=== PATIENT | female | born 1945 | race Caucasian/White ===

== ENCOUNTER 2017-05-14 15:53 | Outpatient (CLI) | payer MEDICARE, OTHER ==
[~2017-05-14] VITALS: Ht 154.9 cm; Wt 63.6 kg
--- NOTE | ~2017-05-14 | OP ---
PATIENT NAME: SUSIE ENCINAS MEDICAL RECORD: [id number] :47 LOCATION:D.CAT ADMISSION DATE: SURGEON: KJ JUAREZ MD DATE OF OPERATION: 05/14/2017 PROCEDURES: 1. Laser atherectomy, RCA and PLV. 2. PTCA stent, RCA and PLV. 3. Left heart catheterization. 4. Selective coronary angiography. 5. Left ventriculogram. INDICATION: Angina and coronary artery disease. PROCEDURE IN DETAIL: After informed consent was obtained and after detailed explanation of risks, benefits as well as alternative therapies, the patient elected to proceed with angiogram and angioplasty. The right radial area was prepped and draped in normal sterile fashion. The right radial artery was cannulated via modified Seldinger technique with placement of 6-Maldivian sheath. All catheters exchanged through this sheath. FINDINGS: Left ventriculogram was performed in standard 30-degree HEBERT view, reveals good cardiac wall motion throughout all segments. Overall ejection fraction estimated 60%. SELECTIVE CORONARY ANGIOGRAPHY: 1. Left main showed no significant angiographic disease. 2. Left anterior descending has moderate irregularities, but no flow-limiting stenosis. 3. Left circumflex has moderate irregularities, but no flow-limiting stenosis. 4. The right coronary has multiple previously placed stents from approximately 2007 that have up to 90% to 95% in-stent restenosis in the RCA and the PLV. PTCA STENT, LASER ATHERECTOMY OF THE RCA AND PLV: Laser catheter used was 1.4 mm catheter throughout the RCA and PLV. Multiple passes were made. Stenting was undertaken with a 2.5 x 38, 3.0 x 38, 3.0 x 34, all Nottingham stents. Result was 0% residual stenosis. OVERALL IMPRESSION: Successful percutaneous transluminal coronary angioplasty stent of the right coronary artery going from multiple areas of 95% initial stenosis to 0% residual. TRANSINT:[id number] Voice Confirmation ID: [id number] DOCUMENT ID: [id number] KJ JUAREZ MD CC: [id number] DICTATION DATE: 05/14/17 1153 IRON HANDLER: 05/14/17 1207 [facility] [address] [place] [address]
--- NOTE | ~2017-05-14 | HEMODYNAMI ---
PATIENT:SUSIE ENCINAS MEDICAL RECORD: [id number] : 47 LOCATION:DNGUYEN ADMISSION DATE: 05/14/17 Generatedon:05/14/201711:45 Patient name: SUSIE ENCINAS Patient #: [id number] SSN: : Date of study: 05/14/2017 Page: Of Hemodynamic Procedure Report Patient Data Patient Demographics Procedure consent was obtained First Name: SUSIE Gender: Female Last Name: HUANG : 1945 Patient #: [id number] Age: 71 year(s) Race: Unknown Additional ID: [id number] Contact details [address]: [address] [place] [address] State: [place] City: [place] Zip code: [address] Past Medical History Allergies Allergen Reaction Date Comments Reported Other allergy 05/14/2017 Iodine, shellfish, codeine, sulfabenzamide Admission Admission Data Admission Date: 05/14/2017 Admission Time: 10:30 Procedure Procedure Types Cath Procedure Diagnostic Procedure LHC LHC w/Coronaries PCI Procedure Coronary Atherectomy Atherectomy w/Stent Coronary Initial Atherectomy w/Stent Coronary Additional Miscellaneous Procedures Moderate Sedation up to 45 minutes Procedure Description Procedure Date Procedure Date: 05/14/2017 Procedure Start Time: 10:40 Procedure End Time: 11:39 Procedure Staff Name Function Royce Kuhn MD Performing Physician Erika Toro RT Monitor Jolie Devlin RT Scrub Ebonie Lopez RN Nurse Procedure Data Cath Procedure Fluoroscopy Diagnostic fluoroscopy Total fluoroscopy Time: time: 17.5 min 17.5 min Diagnostic fluoroscopy Total fluoroscopy dose: dose: 1245 mGy 1245 mGy Contrast Material Contrast Material Type Amount (ml) Isovue 300 147 Entry Location Entry Primary Successful Side Size Upsize Upsize Entry Closure Succes sful Closure Location (Fr) 1 (Fr) 2 (Fr) Remarks Device Remarks Femoral Right 5 Fr 6 Fr Exoseal artery Short Estimated blood loss: 5 ml Diagnostic catheters Device Type Used For End Catheter Placement MULTIPACK Pigtail 5 Fr LV Angiography catheter MULTIPACK JL 4.0 5Fr Left Coronary catheter Angiography MULTIPACK 3DRC 5Fr Right Coronary catheter Angiography Procedure Complications No complications Procedure Medications Medication Administration Route Dosage 0.9% NaCl I.V. 100 ml/hr Oxygen NC 2 l/min Lidocaine 2% added to field 20 Heparin Flush Bag added to field 2 bags (1000units/500ml NS) Fentanyl I.V. 50 mcg Versed I.V. 1 mg Versed I.V. 1 mg Fentanyl I.V. 50 mcg Fentanyl I.V. 50 mcg Versed I.V. 1 mg Versed I.V. 1 mg Fentanyl I.V. 50 mcg Fentanyl I.V. 50 mcg Versed I.V. 1 mg Fentanyl I.V. 50 mcg Heparin Bolus I.V. 5000 units Versed I.V. 1 mg Fentanyl I.V. 50 mcg Fentanyl I.V. 50 mcg Versed I.V. 1 mg Heparin Bolus I.V. 5000 units Versed I.V. 1 mg Fentanyl I.V. 100 mcg Hemodynamics Rest Heart Rate: 84 (bpm) Pressure Samples Time Site Value (mmHg) Purpose Heart Use Rate(bpm) 10:42 LV 87/62,34 Snapshot 70 Snapshots Pre Cath Intra NCS Post Cath Vital Signs Time Heart Resp SPO2 etCO2 NIBP (mmHg) Rhythm Pain Sedation Rate (ipm) (%) (mmHg) Status Level (bpm) 10:15:00 82 17 99 25.6 173/85(136) NSR 0 (11) 10(A) , No pain 10:19:24 85 16 98 26.3 171/82(125) NSR 0 (11) 10(A) , No pain 10:23:44 74 26 96 33.1 157/76(115) NSR 0 (11) 10(A) , No pain 10:28:02 129 14 95 18.8 165/78(121) NSR 0 (11) 10(A) , No pain 10:32:24 68 16 96 31.6 152/76(119) NSR 0 (11) 10(A) , No pain 10:36:42 69 16 97 31.6 161/74(124) NSR 0 (11) 9(A) , No pain 10:40:54 74 21 98 35.4 161/79(121) NSR 0 (11) 10(A) , No pain 10:45:14 78 16 96 27.9 133/79(122) NSR 0 (11) 10(A) , No pain 10:49:28 74 16 96 36.2 152/66(114) NSR 0 (11) 10(A) , No pain 10:53:46 73 19 97 33.1 149/70(117) NSR 0 (11) 9(A) , No pain 10:58:09 71 15 95 21 126/66(102) NSR 0 (11) 9(A) , No pain 11:02:21 69 16 97 21.8 132/67(100) NSR 0 (11) 10(A) , No pain 11:07:26 74 14 96 0 129/67(107) NSR 0 (11) 9(A) , No pain 11:11:32 80 17 96 29.3 149/90(118) NSR 0 (11) 9(A) , No pain 11:15:41 87 16 97 30.8 164/101(145) NSR 0 (11) 9(A) , No pain 11:19:57 88 16 97 24.8 182/105(139) NSR 0 (11) 10(A) , No pain 11:24:18 85 16 97 0 185/96(143) NSR 0 (11) 9(A) , No pain 11:28:38 90 18 96 23.3 184/97(140) NSR 0 (11) 9(A) , No pain 11:33:00 82 16 96 10.5 152/81(128) NSR 0 (11) 10(A) , No pain 11:37:59 85 5 97 30.8 Measuring NSR 0 (11) 10(A) , No pain 11:38:09 86 6 97 35.3 160/79(129) NSR 0 (11) 10(A) , No pain Medications Time Medication Route Dose Verified Delivered Reason Notes Effectiveness by by 10:14:19 0.9% NaCl I.V. 100 Royce Ebonie used for ml/hr Hattie Lopez RN procedure 10:14:27 Oxygen NC 2 Royce Loomis Per physician l/min Hattie Lopez RN 10:14:36 Lidocaine 2% added 20ml Royce Crane for local to vial Hattie Kuhn MD anesthetic field 10:14:41 Heparin Flush added 2 Royce Crane used for Bag to bags Hattie Kuhn MD procedure (1000units/500ml field NS) 10:28:44 Fentanyl I.V. 50 Royce Ebonie for sedation mcg Hattie Lopez RN 10:28:53 Versed I.V. 1 mg Royce Ebonie for sedation Hattie Lopez RN 10:30:26 Versed I.V. 1 mg Royce Ebonie for sedation Hattie Lopez RN 10:30:33 Fentanyl I.V. 50 Royce Ebonie for sedation mcg Hattie Lopez RN 10:32:03 Fentanyl I.V. 50 Royce Ebonie for sedation mcg Hattie Lopez RN 10:32:09 Versed I.V. 1 mg Royce Ebonie for sedation Hattie Lopez RN 10:33:55 Versed I.V. 1 mg Royce Ebonie for sedation Hattie Lopez RN 10:34:05 Fentanyl I.V. 50 Royce Ebonie for sedation mcg Hattie Lopez RN 10:42:01 Fentanyl I.V. 50 Royce Ebonie for sedation mcg Hattie Lopez RN 10:42:06 Versed I.V. 1 mg Royce Ebonie for sedation Hattie Lopez RN 10:43:47 Heparin Bolus I.V. 5000 Royce Ebonie for verifi ed units Hattie Lopez RN anticoagulation by 10:43:47 Fentanyl I.V. 50 Royce Ebonie for sedation mcg Hattie Lopez RN 10:53:19 Versed I.V. 1 mg Royce Ebonie for sedation Hattie Lopez RN 10:55:21 Fentanyl I.V. 50 Royce Eboine for sedation mcg Hattie Lopez RN 11:03:42 Fentanyl I.V. 50 Royce Ebonie for sedation mcg Hattie Lopez RN 11:03:48 Versed I.V. 1 mg Royce Ebonie for sedation Hattie Lopez RN 11:06:12 Heparin Bolus I.V. 5000 Royce Ebonie for verifi ed units Hattie Lopez RN anticoagulation by 11:14:50 Versed I.V. 1 mg Royce Ebonie for sedation Hattie Lopez RN 11:27:13 Fentanyl I.V. 100 Royce Loomis chest pain for mcg Hattie Lopez RN chest pain Procedure Log Time Note 10:00:21 Erika Toro RT(R) sent for patient. Start room use. 10:09:22 Time tracking: Regular hours 10:09:26 Plan of Care:Hemodynamics will remain stable., Cardiac rhythm will remain stable., Comfort level will be maintained., Respiratory function will remain adequate., Patient/ family verbilizes understanding of procedure., Procedure tolerated without complication., Recovers from procedure without complications.. 10:09:37 Patient received from Pre/Post Procedure Room to CCL 2 Alert and oriented. Tansferred to table in Supine position. 10::38 Warm blankets applied, and sudha hugger turned on for patient comfort. 10::38 Correct patient and procedure confirmed by team. 10::40 Signed procedure consent form obtained from patient. 10:09:40 ECG and BP/O2 sat monitors applied to patient. 10:13:47 Vital chart was started 10:14:19 0.9% NaCl 100 ml/hr I.V. was administered by Ebonie Lopez RN; used for procedure; 10:14:27 Oxygen 2 l/min NC was administered by Ebonie Lopez RN; Per physician; 10:14:36 Lidocaine 2% 20ml vial added to field was administered by Royce Kuhn MD; for local anesthetic; 10:14:41 Heparin Flush Bag (1000units/500ml NS) 2 bags added to field was administered by Royce Kuhn MD; used for procedure; 10:16:43 Baseline sample Acquired. 10:16:48 Rhythm: sinus rhythm 10:16:49 Full Disclosure recording started 10:17:02 H&P Date Dictated: 05/08/2017 Within 30 days and on chart., H&P Addendum completed by physician on day of procedure. (MUST COMPLETE FOR ALL OUTPATIENTS). 10:17:03 Pre-procedure instructions explained to patient. 10:17:03 Pre-op teaching completed and patient verbalized understanding. 10:17:05 Family in waiting room. 10:17:06 Patient NPO since Midnight. 10:17:45 Patient allergic to Other allergyIodine, shellfish, codeine, sulfabenzamide 10:17:55 Is the patient allergic to Iodine/contrast media? Yes. 10:17:56 Was the patient premedicated? Yes 10:17:57 Is patient on blood thinner?Yes 10:18:02 ACC The patient was administered the following blood thiners within the last 24 hours: ACCPlavix 10:18:32 Patient diabetic? No. 10:18:34 Previous problem with sedation/anesthesia? No ? 10:19:05 Snore? Yes 10:19:07 Sleep apnea? No 10:19:16 Deviated septum? No 10:19:16 Opens mouth fully? Yes 10:19:17 Sticks out tongue? Yes 10:19:30 Airway obstruction? Yes asthma 10:19:34 Dentures? No ? 10:19:38 Pre procedure: right dorsailis pedis pulse 1+ Palpable, but thready & weak; easily obliterated 10:19:39 Pre procedure: left dorsailis pedis pulse 1+ Palpable, but thready & weak; easily obliterated 10:19:41 Patient pain scale 0/10 ?. 10:19:47 IV patent on arrival in left forearm with 0.9% NaCl at [facility]. 10:19:53 Lab results completed and on chart. 10:19:57 Right groin area was prepped with chlora-prep and draped in sterile fashion 10:19:58 Alarms reviewed by R. N. 10:19:58 Sharps counted by scrub and verified by R.N. 10:28:13 Physician arrived 10:28:14 --------ALL STOP TIME OUT------ 10:28:14 Final Timeout: patient, procedure, and site verified with staff and physician. All members of the team are in agreement. 10:28:17 Right groin site verified by team. 10:28:20 Physical assessment completed. ASA score P 2 - A patient with mild systemic disease as per Royce Kuhn MD. 10:28:23 Sedation plan: IV Moderate Sedation Medication:Versed, Fentanyl 10:28:29 Use device set Femoral Dx 10:28:30 ACIST Syringe (10788) opened to sterile field. 10:28:31 Bag Decanter (2002S) opened to sterile field. 10:28:31 Medline Cath Pack ([id number]) opened to sterile field. 10:28:32 SHEATH 5FR [place] (GTL918) opened to sterile field. 10:28:32 DIAGNOSTIC WIRE .035 260cm J wire (169282) opened to sterile field. 10::34 ACIST Hand Control (32283) opened to sterile field. 10::34 ACIST Manifold (23404) opened to sterile field. 10::35 DIAGNOSTIC Multipack 5Fr catheter set ([id number]) opened to sterile field. 10::35 Tegaderm 4 x 4 (1626W) opened to sterile field. 10::44 Fentanyl 50 mcg I.V. was administered by Ebonie Lopez RN; for sedation; 10:28:53 Versed 1 mg I.V. was administered by Ebonie Lopez RN; for sedation; 10:30:26 Versed 1 mg I.V. was administered by Ebonie Lopez RN; for sedation; 10:30:33 Fentanyl 50 mcg I.V. was administered by Ebonie Lopez RN; for sedation; 10:32:03 Fentanyl 50 mcg I.V. was administered by Ebonie Lopez RN; for sedation; 10:32:09 Versed 1 mg I.V. was administered by Ebonie Lopez RN; for sedation; 10:32:16 Zero performed for pressure channel P1 10:33:55 Versed 1 mg I.V. was administered by Ebonie Lopez RN; for sedation; 10:34:05 Fentanyl 50 mcg I.V. was administered by Ebonie Lopez RN; for sedation; 10:39:59 Procedure started. 10:40:03 Local anesthetic to right femoral artery with Lidocaine 2% by Royce Kuhn MD.INITIAL ACCESS ONLY 10:41:07 A 5 Fr sheath was inserted into the Right Femoral artery 10:41:43 A MULTIPACK Pigtail 5 Fr catheter was advanced over the wire and used for LV Angiography. 10:42:01 Fentanyl 50 mcg I.V. was administered by Ebonie Lopez RN; for sedation; 10:42:06 Versed 1 mg I.V. was administered by Ebonie Lopez RN; for sedation; 10:42:22 LV hemodynamics recorded. 10:42:24 LV gram done using HEBERT 10:: Injector settings: Ml/sec: 5, Volume: 15, 10:42:32 EF : 60 % 10:42:33 Catheter removed. 10:42:40 A MULTIPACK JL 4.0 5Fr catheter was advanced over the wire and used for Left Coronary Angiography. 10:43:12 LCA angiography performed. 10:43:28 Injector settings: Ml/sec: 3, Volume: 6, 10:43:47 Heparin Bolus 5000 units I.V. was administered by Eobnie Lopez RN; for anticoagulation; verified by 10:43:47 Fentanyl 50 mcg I.V. was administered by Ebonie Lopez RN; for sedation; 10:44:17 Catheter removed. 10:44:24 A MULTIPACK 3DRC 5Fr catheter was advanced over the wire and used for Right Coronary Angiography. 10:44:59 RCA angiography performed. 10:45:02 Injector settings: Ml/sec: 3, Volume: 6, 10:45:16 Catheter removed. 10:45:17 Proceeding to intervention. 10:45:55 INFLATOR Merit BasixCompak (PZ9263) opened to sterile field. 10:45:56 SHEATH 6FR [place] (AZG520) opened to sterile field. 10:46:09 Sheath upsized to a 6 Fr Short. 10:47:07 CHOICE PT Extra Support 182cm wire ([id number]) opened to sterile field. 10:49:04 GUIDE 6FR AR 2.0 catheter (SN2SU06) opened to sterile field. 10:49:11 6 Fr ar 2 guide catheter was inserted over the wire 10:52:17 Lazer in room and being prepared 10:53:19 Versed 1 mg I.V. was administered by Ebonie Lopez RN; for sedation; 10:55:21 Fentanyl 50 mcg I.V. was administered by Ebonie Lopez RN; for sedation; 11:03:42 Fentanyl 50 mcg I.V. was administered by Ebonie Lopez RN; for sedation; 11:03:48 Versed 1 mg I.V. was administered by Ebonie Lopez RN; for sedation; 11:04:52 choice pt wire advanced. 11:04:54 Wire advanced across lesion. 11:05:04 Wire removed. 11:06:12 Heparin Bolus 5000 units I.V. was administered by Ebonie Lopez RN; for anticoagulation; verified by 11:07:14 CHOICE PT Extra Support 182cm wire ([id number]) opened to sterile field. 11:07:22 choice pt wire advanced. 11:07:24 Wire advanced across lesion. 11:08:04 Laser pass to mRCA with Fluence of 40 and Rate of 40. 11:12:29 Laser catheter removed. 11:13:49 Inflation number: 1 A EUPHORA 3.0 x 20 Balloon ([id number]) was prepped and advanced across the Dist RCA, then inflated to 9 AMARILIS for 0:10 (min:sec). 11:13:55 Inflation number: 2 The EUPHORA 3.0 x 20 Balloon ([id number]) was reinflated across the Dist RCA, to 9 AMARILIS for 0:10 (min:sec). 11:14:03 Inflation number: 3 The EUPHORA 3.0 x 20 Balloon ([id number]) was reinflated across the Dist RCA, to 13 AMARILIS for 0:10 (min:sec). 11:14:15 Inflation number: 1 The EUPHORA 3.0 x 20 Balloon ([id number]) was reinflated across the Mid RCA, to 13 AMARILIS for 0:10 (min:sec). 11:14:24 Inflation number: 2 The EUPHORA 3.0 x 20 Balloon ([id number]) was reinflated across the Mid RCA, to 13 AMARILIS for 0:10 (min:sec). 11:14:34 Inflation number: 3 The EUPHORA 3.0 x 20 Balloon ([id number]) was reinflated across the Mid RCA, to 17 AMARILIS for 0:10 (min:sec). 11:14:50 Versed 1 mg I.V. was administered by Ebonie Lopez RN; for sedation; 11:14:53 Balloon removed over the wire. 11:15:30 Inflation number: 4 The EUPHORA 3.0 x 20 Balloon ([id number]) was reinflated across the Dist RCA, to 9 AMARILIS for 0:10 (min:sec). 11:15:47 Inflation number: 5 The EUPHORA 3.0 x 20 Balloon ([id number]) was reinflated across the Dist RCA, to 13 AMARILIS for 0:10 (min:sec). 11:16:33 Balloon removed over the wire. 11:16:38 Lazer advanced for another pass to RCA 11:20:08 Laser pass to mCirc with Fluence of 60 and Rate of 40. 11:23:58 Laser catheter removed. 11:25:12 Inflation Number: 1 A ALEYDA RX 2.5 x 38 stent ([id number]) was prepped and advanced across the R PAV. The stent was deployed at 21 AMARILIS for 0:10 (min:sec). 11:26:07 Stent catheter was removed intact over wire. 11:26:53 Inflation Number: 4 A ALEYDA RX 3.0 x 38 stent ([id number]) was prepped and advanced across the Mid RCA. The stent was deployed at 15 AMARILIS for 0:10 (min:sec). 11:27:13 Fentanyl 100 mcg I.V. was administered by Ebonie Lopez RN; chest pain; for chest pain 11:27:15 Inflation number: 6 The stent balloon was then re-inflated across the Dist RCA to 13 AMARILIS for 0:10 (min:sec). 11:27:41 Stent catheter was removed intact over wire. 11:29:17 Inflation Number: 1 A ALEYDA RX 3.0 x 34 stent ([id number]) was prepped and advanced across the Prox RCA. The stent was deployed at 13 AMARILIS for 0:10 (min:sec). 11:29:25 Stent catheter was removed intact over wire. 11:31:02 Laser total pulses delivered: 5180 11:31:08 Laser total treatment time: 2 minutes 9 seconds 11:32:25 Inflation number: 5 A NC EUPHORA 3.5 x 12 balloon ([id number]) was prepped and advanced across the Mid RCA, then inflated to 21 AMARILIS for 0:10 (min:sec). 11:32:50 Inflation number: 2 The NC EUPHORA 3.5 x 12 balloon ([id number]) was reinflated across the Prox RCA, to 21 AMARILIS for 0:10 (min:sec). 11:33:00 Inflation number: 3 The NC EUPHORA 3.5 x 12 balloon ([id number]) was reinflated across the Prox RCA, to 21 AMARILIS for 0:10 (min:sec). 11:33:21 Inflation number: 6 The NC EUPHORA 3.5 x 12 balloon ([id number]) was reinflated across the Mid RCA, to 21 AMARILIS for 0:10 (min:sec). 11:33:35 Inflation number: 7 The NC EUPHORA 3.5 x 12 balloon ([id number]) was reinflated across the Mid RCA, to 23 AMARILIS for 0:10 (min:sec). 11:33:53 Balloon removed over the wire. 11:33:54 Wire removed. 11:33:55 Guide catheter removed. 11:35:17 EXOSEAL 6Fr (EX600) opened to sterile field. 11:35:47 Sheath removed intact; hemostasis achieved with Exoseal to the Right Femoral artery. 11:35:49 Procedure ended.(Physican Out) 11:36:50 Fluoroscopy time 17.50 minutes. 11:36:55 Fluoroscopy dose: 1245 mGy 11:36:55 Flurop Dose total: 1245 11:36:58 Contrast amount:Isovue 300 147ml. 11:37:00 Sharps counted by scrub and verified by R.N. 11:37:02 Insertion/operative site no bleeding no hematoma. 11:37:05 Post-op/insertion site Right Femoral artery dressed using a 4 x 4 and Tegaderm. 11:37:08 Post right femoral artery:stable 11:37:09 Post Procedure Pulses reassessed and unchanged 11:37:12 Post procedure rhythm: unchanged. 11:37:15 Estimated blood loss: 5 ml 11:37:47 Post procedure instruction explained to patient.Patient verbalizes understanding. 11:37:47 Patient needs reinforcement of post procedure teaching. 11:39:15 Procedure type changed to Cath procedure, Diagnostic procedure, LHC, LHC w/Coronaries, PCI procedure, Coronary Atherectomy, Atherectomy w/Stent Coronary Initial, Atherectomy w/Stent Coronary Additional, Miscellaneous Procedures, Moderate Sedation up to 45 minutes 11:39:16 Procedure and supply charges have been captured, reviewed, submitted and are correct. 11:39:22 Procedure Complication : No complications 11:39:24 Vital chart was stopped 11:39:24 See physician's report for complete and final results. 11:39:26 Report given to Pre/Post Procedure Room. 11:39:29 Patient transfered to Pre/Post Procedure Room with Stretcher. 11:39:31 Procedure ended. 11:39:31 Full Disclosure recording stopped 11:39:39 ACC-PCI Only Patient was given prescriptions, or instructed by Royce Kuhn MD to start/continue the following medications upon discharge: Plavix 11:39:40 End room use (Document Last) Intervention Summary Intervention Notes Time ActionType Lesion and Equipment Used Action# Pressure Duration Attributes 11:13:49 Inflate Dist RCA EUPHORA 3.0 x 1 9 00:10 balloon 20 Balloon ([id number]) 11:13:55 Reinflate Dist RCA EUPHORA 3.0 x 2 9 00:10 balloon 20 Balloon ([id number]) 11:14:03 Reinflate Dist RCA EUPHORA 3.0 x 3 13 00:10 balloon 20 Balloon ([id number]) 11:14:15 Reinflate Mid RCA EUPHORA 3.0 x 1 13 00:10 balloon 20 Balloon ([id number]) 11:14:24 Reinflate Mid RCA EUPHORA 3.0 x 2 13 00:10 balloon 20 Balloon ([id number]) 11:14:34 Reinflate Mid RCA EUPHORA 3.0 x 3 17 00:10 balloon 20 Balloon ([id number]) 11:15:30 Reinflate Dist RCA EUPHORA 3.0 x 4 9 00:10 balloon 20 Balloon ([id number]) 11:15:47 Reinflate Dist RCA EUPHORA 3.0 x 5 13 00:10 balloon 20 Balloon ([id number]) 11:25:12 Place stent R PAV ALEYDA RX 2.5 x 1 21 00:10 38 stent ([id number]) 11:26:53 Place stent Mid RCA ALEYDA RX 3.0 x 4 15 00:10 38 stent ([id number]) 11:27:15 Reinflate Dist RCA ALEYDA RX 3.0 x 6 13 00:10 stent 38 stent balloon ([id number]) 11:29:17 Place stent Prox RCA ALEYDA RX 3.0 x 1 13 00:10 34 stent ([id number]) 11:32:25 Inflate Mid RCA NC EUPHORA 3.5 5 21 00:10 balloon x 12 balloon ([id number]) 11:32:50 Reinflate Prox RCA NC EUPHORA 3.5 2 21 00:10 balloon x 12 balloon ([id number]) 11:33:00 Reinflate Prox RCA NC EUPHORA 3.5 3 21 00:10 balloon x 12 balloon ([id number]) 11:33:21 Reinflate Mid RCA NC EUPHORA 3.5 6 21 00:10 balloon x 12 balloon ([id number]) 11:33:35 Reinflate Mid RCA NC EUPHORA 3.5 7 23 00:10 balloon x 12 balloon ([id number]) Device Usage Item Name Manufacture Quantity Catalog Number Hospital Part Current M inimal Lot# / Charge Number Stock Stock Serial# Code ACIST Syringe Acist 1 36984 313457 124340 675224 2 0 (30868) Medical Systems Inc Bag Decanter Microtek 1 [id number] 66603 498659 5 () Medical Inc. Medline Cath Cardinal 1 [id number] 676712 36804 700926 5 Room Choice ([id number]) SHEATH 5FR Terumo 1 [id number] 042211 656013 620930 4 0 [place] ([id number]) DIAGNOSTIC St Rudy 1 663641 272769 630968 774781 3 0 WIRE .035 260cm J wire (597876) ACIST Hand Acist 1 06320 468377 601266 965117 5 Control Medical (37273) Systems Inc ACIST Manifold Acist 1 38567 187442 029034 716617 5 (21340) Medical Systems Inc DIAGNOSTIC Cardinal 1 RO3166 216721 36645 479811 3 0 Multipack 5Fr Health catheter set (TR2596) Tegaderm 4 x 4 3M 1 1626W 739880 780143 633129 5 (1626W) MULTIPACK Cardinal 1 428126 5 Pigtail 5 Fr Health catheter MULTIPACK JL Cardinal 1 [id number] 5 4.0 5Fr Health catheter MULTIPACK 3DRC Cardinal 1 241651 5 5Fr catheter Health INFLATOR Merit Merit 1 NR7627 844581 801673 340314 1 5 Azure Power (GL6487) SHEATH 6FR Terumo 1 [id number] 177718 774560 514917 4 0 [place] ([id number]) CHOICE PT [place] 2 [id number] 860269 333239 973895 5 Extra Support Scientific 182cm wire ([id number]) GUIDE 6FR AR Medtronic 1 [id number] 545401 07891 298190 1 2.0 catheter (HK4IS26) EUPHORA 3.0 x Medtronic 1 [id number] 540536 042220 980909 5 [id number] 20 Balloon ([id number]) ALEYDA RX 2.5 x Medtronic 1 [id number] 008388 1977768 707182 5 [id number] 38 stent ([id number]) ALEYDA RX 3.0 x Medtronic 1 [id number] 277884 4781896 682722 5 [id number] 38 stent ([id number]) ALEYDA RX 3.0 x Medtronic 1 [id number] 081570 5158788 667225 5 [id number] 34 stent ([id number]) NC EUPHORA 3.5 Medtronic 1 [id number] 921899 135662 106435 1 [id number] x 12 balloon ([id number]) EXOSEAL 6Fr Cardinal 1 EX600 733446 285422 355881 1 0 (EX600) Health Signature Audit [place] Stage Time Signature Unsigned Intra-Procedure 05/14/2017 Erika INFANTE(Matt) 11:44:55 AM Signatures Monitor : Erika Toro RT Signature : Date : Time : [place] [address] [place] [address]
[2017-05-14 09:10] VITALS: BP 126/78; Ht 154.9 cm; Wt 63.6 kg
[2017-05-14 09:28] LABS: BASOPHILS 0.1 % (0-2); EOSINOPHILS 0 % (0-7); HEMOGLOBIN 14.3 g/dL (12-16); IMMATURE GRANULOCYTES 0.1 % (0-5); LYMPHOCYTES 12.8 % (15-50); MCH 31.1 pg (26.0-34.0); MCV 91.3 fL (80.0-100.0); MEAN PLATELET VOLUME 9.2 fL (7.4-10.4); MONOCYTES 1.3 % (2-11); NEUTROPHILS 85.7 % (40-80); PLATELET COUNT 342 10x3/uL (130-400); RDW 12.9 % (11.5-14.5); WBC 9.2 10x3/uL (4.8-10.8)
[2017-05-14 09:49] LABS: CALC OSMOLALITY 276 mosm/kg (275-300); CALCIUM 10.3 mg/dL (8.5-10.1); CARBON DIOXIDE 28.5 mmol/L (21.0-32.0); CHLORIDE - SERUM 99 mmol/L (98-107); CREATININE - SERUM 0.7 mg/dL (0.6-1.3); GLUCOSE 131 mg/dL (74-106); POTASSIUM - SERUM 3.2 mmol/L (3.5-5.1); SODIUM 138 mmol/L (136-145); UREA NITROGEN 11 mg/dL (7-18); eGFR NON AFRICAN AMERICAN 88 mL/min (90-120)
[~2017-05-14 15:53] MED LIST: BAYER CHEWABLE81 MG PO; FLOVENT DI50 MCG/DIS INH; LISINOPRIL-HCTZ1 T11 PO; NIFEDIPINE ER60 MG PO; OMEGA 3 FISH OI1 CAP PO; PLAVIX75 MG PO; PRAVACHOL40 MG PO; PREDNISONE20 MG PO; PROAIR HFA8.5 GM INH; SINGULAIR5 MG PO; TENORMIN100 MG PO; TYLENOL PM1 TAB PO; XANAX0.25 MG PO; ZYRTEC10 MG PO
== END 2017-05-14 15:55 | disposition home or self-care (01) ==
LOC: D.CATH 15:53
PROVIDERS: Internal Medicine Interventional Cardiology
DX: I25.119 Atherosclerotic heart disease of native coronary artery with unspecified angina pectoris (principal); T82.855A Stenosis of coronary artery stent, initial encounter; Z01.812 Encounter for preprocedural laboratory examination
CPT/HCPCS: 93458; C9602; C9603

== ENCOUNTER 2017-09-10 08:27 | Outpatient (CLI) | payer MEDICARE, OTHER ==
[~2017-09-10] VITALS: Ht 154.9 cm; Wt 61.4 kg
--- NOTE | ~2017-09-10 | HEMODYNAMI ---
PATIENT:HEATHER ENCINAS MEDICAL RECORD: [id number] : 47 LOCATION:[facility] ADMISSION DATE: 09/10/17 Generatedon:09/10/201710:46 Patient name: HEATHER ENCINAS Patient #: [id number] SSN: : 1945 Date of study: 09/10/2017 Page: Of Hemodynamic Procedure Report Patient Data Patient Demographics Procedure consent was obtained First Name: HEATHER Gender: Female Last Name: HUANG : 1945 [facility] Initial: E Age: 71 year(s) Patient #: [id number] Race: Unknown Additional ID: [id number] Contact details [address]: [address] [place] [address] State: [place] City: [place] Zip code: [address] Past Medical History Allergies Allergen Reaction Date Comments Reported Other allergy 05/14/2017 Iodine, shellfish, codeine, sulfabenzamide Other allergy 09/10/2017 CODEINE, DARVON, IOBENGUANE IODINE, SHELLFISH DERIVED, SULFABENZAMIDE Admission Admission Data Admission Date: 09/10/2017 Admission Time: 8:27 Lab Results Lab Result Date: 09/10/2017 Lab Result Time: 0:00 Biochemistry Name Units Result Min Max BUN mg/dl 9 --(*---)-- 7 18 Creatinine mg/dl 0.7 --(*---)-- 0.6 1.3 CBC Name Units Result Min Max Hemoglobin g/dl 14.3 --(*---)-- 13.5 17.5 Procedure Procedure Types Cath Procedure Diagnostic Procedure [facility] w/Coronaries Sedation Charges Moderate Sedation up to 30 minutes PCI Procedure Coronary Atherectomy Atherectomy w/PTCA Coronary Initial Procedure Description Procedure Date Procedure Date: 09/10/2017 Procedure Start Time: 10:04 Procedure End Time: 10:41 Procedure Staff Name Function Royce Kuhn MD Performing Physician Robyn Madden RT Monitor Anuel Khan RT Scrstephen Lazar RN Nurse Procedure Data Cath Procedure Fluoroscopy Diagnostic fluoroscopy Total fluoroscopy Time: 9.2 time: 9.2 min min Diagnostic fluoroscopy Total fluoroscopy dose: 844 dose: 844 mGy mGy Contrast Material Contrast Material Type Amount (ml) Isovue 300 135 Entry Location Entry Primary Successful Side Size Upsize Upsize Entry Closure Succes sful Closure Location (Fr) 1 (Fr) 2 (Fr) Remarks Device Remarks Femoral Right 5 Fr 7 Fr Exoseal artery Short Estimated blood loss: 10 ml Diagnostic catheters Device Type Used For End Catheter Placement MULTIPACK Pigtail 5 Fr Procedure catheter MULTIPACK JL 4.0 5Fr Procedure catheter MULTIPACK 3DRC 5Fr Procedure catheter Procedure Complications No complications Procedure Medications Medication Administration Route Dosage 0.9% NaCl I.V. 100 ml/hr Oxygen etCO2 Nasal cannula 2 l/min Heparin Flush Bag added to field 2 bags (1000units/500ml NS) Lidocaine 1% added to field 20 Versed I.V. 2 mg Fentanyl I.V. 100 mcg Versed I.V. 2 mg Fentanyl I.V. 100 mcg Versed I.V. 1 mg Heparin Bolus I.V. 5000 units Versed I.V. 1 mg Versed I.V. 1 mg Hemodynamics Rest HGB: 14.3 (g/dl) Heart Rate: 75 (bpm) Snapshots Pre Cath Intra NCS Post Cath Vital Signs Time Heart Resp SPO2 etCO2 NIBP (mmHg) Rhythm Pain Sedation Rate (ipm) (%) (mmHg) Status Level (bpm) 9:40:26 72 14 97 14.2 177/79(131) NSR 0 (11) 10(A) , No pain 9:45:21 66 13 98 12.7 169/65(120) NSR 0 (11) 10(A) , No pain 9:50:11 64 19 97 13.5 151/71(121) NSR 0 (11) 10(A) , No pain 9:55:37 64 18 95 18 160/76(128) NSR 0 (11) 10(A) , No pain 10:00:22 62 18 94 0 143/66(107) NSR 0 (11) 10(A) , No pain 10:05:41 64 16 97 20.2 157/78(127) NSR 0 (11) 10(A) , No pain 10:10:26 65 15 88 0 137/69(110) NSR 0 (11) 10(A) , No pain 10:15:07 65 17 96 18.7 153/70(114) NSR 0 (11) 9(A) , No pain 10:19:51 69 19 97 15 145/70(116) NSR 0 (11) 9(A) , No pain 10:24:36 67 14 96 13.5 153/63(126) NSR 0 (11) 9(A) , No pain 10:29:21 71 14 97 18 151/69(117) NSR 0 (11) 9(A) , No pain 10:34:02 73 11 98 16.5 161/82(124) NSR 0 (11) 9(A) , No pain 10:38:46 69 12 98 18 166/77(127) NSR 0 (11) 10(A) , No pain Medications Time Medication Route Dose Verified Delivered Reason Notes Effectiveness by by 9:40:13 0.9% NaCl I.V. 100 John John Per physician ml/hr Nagi Lazar RN RN 9:40:31 Oxygen etCO2 2 John John Per physician Nasal l/min Nagi Lazar cannula RN RN 9:40:44 Heparin Flush added 2 John John used for Bag to bags Nagi Lazar procedure (1000units/500ml RN RN NS) 9:49:06 Lidocaine 1% added 20ml John John for local to vial Nagi Lazar anesthetic RN RN 10:05:25 Versed I.V. 2 mg John John for sedation Nagi Lazar RN RN 10:05:33 Fentanyl I.V. 100 John John for sedation mcg Nagi Lazar RN RN 10:07:55 Versed I.V. 2 mg John John for sedation Nagi Lazar RN RN 10:08:00 Fentanyl I.V. 100 John John for sedation mcg Nagi Lazar RN RN 10:14:14 Versed I.V. 1 mg John John for sedation Nagi Lazar RN RN 10:16:25 Heparin Bolus I.V. 5000 John John for units Nagi torre RN RN 10:23:11 Versed I.V. 1 mg John John for sedation Nagi Lazar RN RN 10:36:50 Versed I.V. 1 mg John Lopez for sedation Nagi Lazar RN liquor department manager Log Time Note 9:16:26 Signed procedure consent form obtained from patient. 9:16:28 Time tracking: Regular hours (M-F 7:00 - 5:00) 9:16:31 Plan of Care:Hemodynamics will remain stable., Cardiac rhythm will remain stable., Comfort level will be maintained., Respiratory function will remain adequate., Patient/ family verbilizes understanding of procedure., Procedure tolerated without complication., Recovers from procedure without complications.. 9:20:03 Patient allergic to Other allergyCODEINE, DARVON, IOBENGUANE IODINE, SHELLFISH DERIVED, SULFABENZAMIDE 9:20:06 John Lazar RN sent for patient. Start room use. 9:31:21 Patient received from Pre/Post Procedure Room to CCL 1 Alert and oriented. Tansferred to table in Supine position. 9:31:22 Warm blankets applied, and sudha hugger turned on for patient comfort. 9:31:23 Correct patient and procedure confirmed by team. 9:31:24 ECG and BP/O2 sat monitors applied to patient. 9:39:25 Vital chart was started 9:39:26 Baseline sample Acquired. 9:39:31 Rhythm: sinus rhythm 9:39:32 Full Disclosure recording started 9:39:38 H&P Date Dictated: 09/04/2017 Within 30 days and on chart., H&P Addendum completed by physician on day of procedure. (MUST COMPLETE FOR ALL OUTPATIENTS). 9:39:39 Pre-procedure instructions explained to patient. 9:39:39 Pre-op teaching completed and patient verbalized understanding. 9:39:41 Family in patients room. 9:39:44 Patient NPO since Midnight. 9:39:46 Is the patient allergic to Iodine/contrast media? Yes. 9:39:47 Was the patient premedicated? Yes 9:39:48 Is patient on blood thinner?Yes 9:39:50 ACC The patient was administered the following blood thiners within the last 24 hours: ACCPlavix 9:39:51 Patient diabetic? No. 9:39:53 Patient not . Patient is over age 55. 9:39:56 Previous problem with sedation/anesthesia? No ? 9:39:56 Snore? Yes 9:39:57 Sleep apnea? No 9:39:58 Deviated septum? No 9:39:59 Opens mouth fully? Yes 9:40:00 Sticks out tongue? Yes 9:40:03 Airway obstruction? Yes ASTHMA 9:40:07 Dentures? No ? 9:40:13 0.9% NaCl 100 ml/hr I.V. was administered by John Lazar RN; Per physician; 9:40:31 Oxygen 2 l/min etCO2 Nasal cannula was administered by John Lazar RN; Per physician; 9:40:44 Heparin Flush Bag (1000units/500ml NS) 2 bags added to field was administered by John Lazar RN; used for procedure; 9:42:46 Pre procedure: right dorsailis pedis pulse 2+ Normal; easily identifiable; not easily obliterated 9:42:50 Patient pain scale 2/10 ?. 9:43:00 IV patent on arrival in left antecubital with 0.9% NaCl at [facility]. 9:46:26 Lab Result : BUN 9 mg/dl 9:46:26 Lab Result : Hemoglobin 14.3 g/dl 9:46:26 Lab Result : Creatinine 0.7 mg/dl 9:46:38 Lab results completed and on chart. 9:46:41 Right groin area was prepped with chlora-prep and draped in sterile fashion 9:46:45 Alarms reviewed by R. N. 9:46:45 Sharps counted by scrub and verified by R.N. 9:49:06 Lidocaine 1% 20ml vial added to field was administered by John Lazar RN; for local anesthetic; 9:55:07 Zero performed for pressure channel P1 9:56:50 Use device set Femoral Dx 9:56:51 ACIST Syringe (60810) opened to sterile field. 9:56:52 Bag Decanter () opened to sterile field. 9:56:54 ACIST Hand Control (80894) opened to sterile field. 9:56:55 ACIST Manifold (88122) opened to sterile field. 9:56:56 Tegaderm 4 x 4 (1626W) opened to sterile field. 9:56:59 Medline Cath Pack ([id number]) opened to sterile field. 9:56:59 DIAGNOSTIC WIRE .035 260cm J wire (670285) opened to sterile field. 9:57:01 DIAGNOSTIC Multipack 5Fr catheter set (AH2579) opened to sterile field. 9:57:02 SHEATH Prelude 5Fr 0.035 (DQV-1U-95-035) opened to sterile field. 10:03:25 --------ALL STOP TIME OUT------ 10:03:25 Final Timeout: patient, procedure, and site verified with staff and physician. All members of the team are in agreement. 10:03:27 Right groin site verified by team. 10:03:29 Physical assessment completed. ASA score P 2 - A patient with mild systemic disease as per Royce Kuhn MD. 10:03:32 Sedation plan: IV Moderate Sedation Medication:Versed, Fentanyl 10:04:34 Procedure started. 10:04:41 Local anesthetic to right femoral artery with Lidocaine 2% by Royce Kuhn MD.INITIAL ACCESS ONLY 10:05:25 Versed 2 mg I.V. was administered by John Lazar RN; for sedation; 10:05:33 Fentanyl 100 mcg I.V. was administered by John Lazar RN; for sedation; 10:06:01 A 5 Fr sheath was inserted into the Right Femoral artery 10:06:18 A MULTIPACK Pigtail 5 Fr catheter was advanced over the wire and used for Procedure. 10:06:38 Injector settings: Ml/sec: 10, Volume: 20, 10:06:40 LV gram done using HEBERT 10:07:04 EF : 60 % 10:07:05 Catheter removed. 10:07:12 A MULTIPACK JL 4.0 5Fr catheter was advanced over the wire and used for Procedure. 10:07:48 LCA angiography performed. 10:07:55 Versed 2 mg I.V. was administered by John Lazar RN; for sedation; 10:08:00 Fentanyl 100 mcg I.V. was administered by John Lazar RN; for sedation; 10:08:27 Catheter removed. 10:08:31 A MULTIPACK 3DRC 5Fr catheter was advanced over the wire and used for Procedure. 10:09:36 RCA angiography performed. 10:09:38 Catheter removed. 10:10:27 INFLATOR Merit BasixCompak (VN5597) opened to sterile field. 10:10:28 CHOICE PT Extra Support 182cm wire ([id number]) opened to sterile field. 10:13:32 SHEATH 7FR [place] (COU190) opened to sterile field. 10:13:50 GUIDE 7FR HS I SH catheter ([id number]) opened to sterile field. 10:14:02 Sheath upsized to a 7 Fr Short. 10:14:07 7 Fr HS1 SH guide catheter was inserted over the wire 10:14:14 Versed 1 mg I.V. was administered by John Lazar RN; for sedation; 10:15:14 CHOICE PT Extra Support J 300cm guide wire ([id number]) opened to sterile field. 10:16:03 CHOICE ES 300 wire advanced. 10:16:25 Heparin Bolus 5000 units I.V. was administered by John Lazar RN; for anticoagulation; 10:16:58 Wire advanced across lesion. 10:17:27 Inflate balloon Inflation number: 1 A EMERGE OTW 2.0 x 15 balloon ([id number]) was prepped and advanced across the Mid RCA, then inflated to 13 AMARILIS for 0:10 (min:sec). 10:17:37 Inflation number: 2 The EMERGE OTW 2.0 x 15 balloon ([id number]) was reinflated across the Mid RCA, to 13 AMARIILS for 0:10 (min:sec). 10:17:50 Inflation number: 3 The EMERGE OTW 2.0 x 15 balloon ([id number]) was reinflated across the Mid RCA, to 13 AMARILIS for 0:10 (min:sec). 10:18:16 Inflation number: 4 The EMERGE OTW 2.0 x 15 balloon ([id number]) was reinflated across the Mid RCA, to 17 AMARILIS for 0:10 (min:sec). 10:18:26 Balloon removed over the wire. 10:18:37 LASER ELCA 0.9 Rx atherectomy catheter (062841) opened to sterile field. 10:21:23 Laser pass to PLB with Fluence of 80 and Rate of 40. 10:23:02 Laser pass to pRCA with Fluence of 80 and Rate of 40. 10:23:11 Versed 1 mg I.V. was administered by John Lazar RN; for sedation; 10:28:18 Laser total treatment time: 1 minutes 13 seconds 10:28:18 Laser total pulses delivered: 2992 10:28:18 Laser catheter removed. 10:29:44 Inflation number: 5 The EMERGE OTW 2.0 x 15 balloon ([id number]) was reinflated across the Mid RCA, to 17 AMARILIS for 0:10 (min:sec). 10:30:01 Inflation number: 6 The EMERGE OTW 2.0 x 15 balloon ([id number]) was reinflated across the Mid RCA, to 21 AMARILIS for 0:10 (min:sec). 10:30:21 Inflation number: 7 The EMERGE OTW 2.0 x 15 balloon ([id number]) was reinflated across the Mid RCA, to 21 AMARILIS for 0:10 (min:sec). 10:30:47 Balloon removed over the wire. 10:33:31 Inflate balloon Inflation number: 8 A EUPHORA 2.5 x 30 Balloon ([id number]) was prepped and advanced across the Mid RCA, then inflated to 19 AMARILSI for 0:10 (min:sec). 10:33:48 Inflation number: 9 The EUPHORA 2.5 x 30 Balloon ([id number]) was reinflated across the Mid RCA, to 21 AMARILIS for 0:10 (min:sec). 10:34:01 Balloon removed over the wire. 10:35:27 Inflate balloon Inflation number: 10 A EUPHORA 3.5 x 30 Balloon ([id number]) was prepped and advanced across the Mid RCA, then inflated to 17 AMARILIS for 0:10 (min:sec). 10:35:44 Inflation number: 11 The EUPHORA 3.5 x 30 Balloon ([id number]) was reinflated across the Mid RCA, to 19 AMARILIS for 0:10 (min:sec). 10:36:50 Versed 1 mg I.V. was administered by John Lazar RN; for sedation; 10:36:51 Balloon removed over the wire. 10:36:51 Wire removed. 10:36:52 Guide catheter removed. 10:37:00 EXOSEAL 7Fr (EX700) opened to sterile field. 10:38:03 Sheath removed intact; hemostasis achieved with Exoseal to the Right Femoral artery. 10:38:05 Procedure ended.(Physican Out) 10:38:32 Fluoroscopy time 09.20 minutes. 10:38:43 Fluoroscopy dose: 844 mGy 10:38:43 Flurop Dose total: 844 10:38:47 Contrast amount:Isovue 300 135ml. 10:38:50 Sharps counted by scrub and verified by R.N. 10:38:53 Post-op/insertion site Right Femoral artery dressed using a 4 x 4 and Tegaderm. 10:39:03 Post right femoral artery:stable, soft, clean and dry 10:39:07 Post procedure: right dorsailis pedis pulse 2+ Normal; easily identifiable; not easily obliterated. 10:39:10 Post-procedure physical assessment completed. ASA score P 2 - A patient with mild systemic disease as per Royce Kuhn MD. 10:39:14 Post procedure rhythm: unchanged. 10:39:16 Estimated blood loss: 10 ml 10:39:18 Post procedure instruction explained to patient.Patient verbalizes understanding. 10:39:18 Patient needs reinforcement of post procedure teaching. 10:40:28 Procedure type changed to Cath procedure, Diagnostic procedure, LHC, LHC w/Coronaries, Sedation Charges, Moderate Sedation up to 30 minutes, PCI procedure, Coronary Atherectomy, Atherectomy w/PTCA Coronary Initial 10:41:00 Procedure and supply charges have been captured, reviewed, submitted and are correct. 10:41:02 Procedure Complication : No complications 10:41:04 Vital chart was stopped 10:41:04 See physician's report for complete and final results. 10:41:06 Report given to Pre/Post Procedure Room. 10:41:09 Patient transfered to Pre/Post Procedure Room with Bed. 10:41:11 Procedure ended. 10:41:11 Full Disclosure recording stopped 10:41:14 End room use (Document Last) Intervention Summary Intervention Notes Time ActionType Lesion and Equipment Action# Pressure Duration Attributes Used 10:17:27 Inflate Mid RCA EMERGE OTW 1 13 00:10 balloon 2.0 x 15 balloon ([id number]) 10:17:37 Reinflate Mid RCA EMERGE OTW 2 13 00:10 balloon 2.0 x 15 balloon ([id number]) 10:17:50 Reinflate Mid RCA EMERGE OTW 3 13 00:10 balloon 2.0 x 15 balloon ([id number]) 10:18:16 Reinflate Mid RCA EMERGE OTW 4 17 00:10 balloon 2.0 x 15 balloon ([id number]) 10:29:44 Reinflate Mid RCA EMERGE OTW 5 17 00:10 balloon 2.0 x 15 balloon ([id number]) 10:30:01 Reinflate Mid RCA EMERGE OTW 6 21 00:10 balloon 2.0 x 15 balloon ([id number]) 10:30:21 Reinflate Mid RCA EMERGE OTW 7 21 00:10 balloon 2.0 x 15 balloon ([id number]) 10:33:31 Inflate Mid RCA EUPHORA 2.5 8 19 00:10 balloon x 30 Balloon ([id number]) 10:33:48 Reinflate Mid RCA EUPHORA 2.5 9 21 00:10 balloon x 30 Balloon ([id number]) 10:35:27 Inflate Mid RCA EUPHORA 3.5 10 17 00:10 balloon x 30 Balloon ([id number]) 10:35:44 Reinflate Mid RCA EUPHORA 3.5 11 19 00:10 balloon x 30 Balloon ([id number]) Device Usage Item Name Manufacture Quantity Catalog Number Hospital Part Current M inimal Lot# / Charge Number Stock Stock Serial# Code ACIST Syringe Acist 1 32706 051484 579672 339910 2 0 (07626) Medical Systems Inc Bag Decanter Microtek 1 2001S 713378 55735 826599 5 (2001S) Medical Inc. ACIST Hand Acist 1 86060 205864 173747 429304 5 Control (24391) Medical Systems Inc ACIST Manifold Acist 1 66986 308189 074232 434974 5 (53464) Medical Systems Inc Tegaderm 4 x 4 3M 1 1626W 631160 233384 281920 5 (1626W) Medline Cath Cardinal 1 [id number] 917184 54366 383090 5 Pack Health ([id number]) DIAGNOSTIC WIRE [facility] [place] 1 710018 956597 557750 253988 3 0 .035 260cm J wire (522379) DIAGNOSTIC Cardinal 1 VK4763 923633 65445 572442 3 0 Multipack 5Fr Health catheter set (IS1388) SHEATH Prelude Merit 1 [id number]-0K-43-035 878450 091482 232997 5 5Fr 0.035 Medical (QLP-7B-34-035) MULTIPACK Cardinal 1 317033 5 Pigtail 5 Fr Health catheter MULTIPACK JL Cardinal 1 534519 5 4.0 5Fr Health catheter MULTIPACK 3DRC Cardinal 1 827327 5 5Fr catheter Health INFLATOR [facility] 1 ZX6014 455572 297927 691396 1 5 [facility] (YJ5144) CHOICE PT Extra [place] 1 [id number] 603309 187234 846885 5 Support 182cm Scientific wire ([id number]) SHEATH 7FR Terumo 1 HDD580 297509 257901 987776 5 [place] (ABZ343) GUIDE 7FR HS I Medtronic 1 [id number] 559590 999139 539782 0 SH catheter ([id number]) CHOICE PT Extra [place] 1 [id number] 507745 758644 839035 5 Support J 300cm Scientific guide wire ([id number]) EMERGE OTW 2.0 [place] 1 [id number] 866270 999393 948782 5 [id number] x 15 balloon Scientific ([id number]) LASER ELCA 0.9 [place] 1 110-004 289579 673812 252251 5 Rx atherectomy Healthcare catheter (273413) (316595) EUPHORA 2.5 x Medtronic 1 [id number] 982869 207486 103622 5 [id number] 30 Balloon ([id number]) EUPHORA 3.5 x Medtronic 1 [id number] 701492 168723 490702 5 [id number] 30 Balloon ([id number]) EXOSEAL 7Fr Cardinal 1 EX700 378653 225527 098210 5 (EX700) Health Signature Audit [place] Stage Time Signature Unsigned Intra-Procedure 09/10/2017 Robyn Madden 10:46:07 AM RT(R) Signatures Monitor : Robyn Madden Signature : RT Date : Time : [facility] [address] [place] [address]
--- NOTE | ~2017-09-10 | OP ---
PATIENT NAME: HEATHER ENCINAS MEDICAL RECORD: [id number] :47 LOCATION:D.CAT ADMISSION DATE: SURGEON: KJ JUAREZ MD DATE OF OPERATION: 09/10/2017 PROCEDURES: 1. Laser atherectomy RCA. 2. Laser atherectomy RCA PLV. 3. PTCA RCA. 4. PTCA RCA PLV. 5. Left heart catheterization. 6. Selective coronary angiography. 7. Left ventriculogram. INDICATION: Angina and coronary artery disease. PROCEDURE IN DETAIL: After informed consent was obtained and after detailed description of risks, benefits as well as alternative therapies, the patient elected to proceed with angiogram and angioplasty. The right femoral area was prepped and draped in normal sterile fashion. Right femoral artery was cannulated via modified Seldinger technique with placement of 6-Romanian sheath. All catheters exchanged through this sheath. FINDINGS: Left ventriculogram was performed in standard 30-degree HEBERT view, reveals good cardiac wall motion throughout all segments. Overall ejection fraction estimated at 50%. SELECTIVE CORONARY ANGIOGRAPHY: 1. Left main is with no significant angiographic disease. 2. Left anterior descending has moderate irregularities, but no flow-limiting stenosis. 3. The left circumflex has moderate irregularities, but no flow-limiting stenosis. 4. The right coronary artery has multiple previously placed stents. There is 80% in-stent restenosis in the RCA, 100% stenosis in the PLV. PTCA OF THE RCA AND PLV: The RCA was addressed with a 3.5 balloon. The PLV with a 2.0 and 2.5 balloon. There was still significant tissue burden. Laser atherectomy was performed with 0.9 catheter at maximum fluence. Multiple passes were made to the RCA and PLV. Repeat balloon angioplasty was made to high pressure with a 2.5 and 3.5 balloon. Result was 0% residual. OVERALL IMPRESSION: Successful PTCA stent of the RCA and PLV going from 100% initial stenosis with RHONDA 0 flow to 0% residual stenosis with RHONDA-3 flow. TRANSINT:[id number] Voice Confirmation ID: [id number] DOCUMENT ID: [id number] OPERATIVE REPORT [id number] HEATHER ENCINAS KJ JUAREZ MD at 1700 CC: [id number] DICTATION DATE: 09/10/17 [address] ATTENDANT: 09/10/17 1246 DEP CLI 09/10/17 [facility] [address] [place] [address]
[2017-09-10] MEDS ORDERED: FLUTICASONE PRO16 GM NASAL (08:48)
[2017-09-10 08:55] VITALS: BP 200/76; Ht 154.9 cm; Wt 61.4 kg
[2017-09-10 09:24] LABS: BASOPHILS 0.1 % (0-2); EOSINOPHILS 0 % (0-7); HEMATOCRIT 42.5 % (36.0-48.0); HEMOGLOBIN 14.3 g/dL (12-16); IMMATURE GRANULOCYTES 0.2 % (0-5); LYMPHOCYTES 12.7 % (15-50); MCH 29.8 pg (26.0-34.0); MCHC 33.6 g/dL (31.0-37.0); MCV 88.5 fL (80.0-100.0); MEAN PLATELET VOLUME 9.5 fL (7.4-10.4); PLATELET COUNT 341 10x3/uL (130-400); RDW 13.1 % (11.5-14.5); WBC 8.3 10x3/uL (4.8-10.8)
[2017-09-10 09:37] LABS: CALC OSMOLALITY 280 mosm/kg (275-300); CALCIUM 10.2 mg/dL (8.5-10.1); CARBON DIOXIDE 27.7 mmol/L (21.0-32.0); CHLORIDE - SERUM 99 mmol/L (98-107); CREATININE - SERUM 0.7 mg/dL (0.6-1.3); GLUCOSE 149 mg/dL (74-106); POTASSIUM - SERUM 3.2 mmol/L (3.5-5.1); SODIUM 140 mmol/L (136-145); UREA NITROGEN 9 mg/dL (7-18); eGFR NON AFRICAN AMERICAN 88 mL/min (90-120)
== END 2017-09-10 15:05 | disposition home or self-care (01) ==
LOC: D.CATH 08:27
PROVIDERS: Internal Medicine Interventional Cardiology
DX: I25.119 Atherosclerotic heart disease of native coronary artery with unspecified angina pectoris (principal); T82.855A Stenosis of coronary artery stent, initial encounter; Z01.812 Encounter for preprocedural laboratory examination